=== PATIENT | male | born 1960 | race Caucasian/White ===

== ENCOUNTER 2023-09-17 06:38 | Day surgery (SDC) | payer BC, SELFPAY ==
[2023-09-12 15:28] VITALS: BMI 43.0
--- NOTE | 2023-09-16 09:27 | HO.ANESPROP2 ---
Documented by User: Connie Mills NP 09/16/23 09:27 HPI - Anesthesia Eval Consult details Narrative: 63yo M for Colonoscopy [facility] Past Medical History Medical History (Updated 09/12/23 @ 15:27 by Hayley Al RN) Solitary kidney, congenital Diabetes mellitus Elevated cholesterol Surgical History Surgical History (Updated 09/12/23 @ 15:27 by Hayley Al RN) History of amputation of thumb Hx of hand surgery Hx of vasectomy Hx of right knee surgery Hx of hernia repair Hx of colonoscopy Social History Social History (Updated 09/12/23 @ 15:34 by Hayley Al, CORWIN) Patient Tobacco Use Status: Current everyday Tobacco user Tobacco use type: Cigarette Cigarettes Per Day: 15 Smoked in Last 30 Days: Yes Advance Directives: No Advance Directives Information Provided: Yes Advance Directives on File: No Current occupation: transmission worker Meds Allergies Allergy/AdvReac Type Severity Reaction Status Date / Time apricot [Apricot] Allergy Severe SWELLING/RA Verified 09/17/23 07:15 Home Medications ?Medication ?Instructions ?Recorded ?Confirmed ?Last Taken ?Type Vitamin D3 09/12/23 09/12/23 Unknown History atorvastatin 20 mg tablet 20 mg PO DAILY 09/12/23 09/12/23 Unknown History Exam Height,Weight and Vital Signs: Height 5 ft 10 in Weight 136.078 kg Assessment and Plan Assessment Anesthesia Assessment: Chart Reviewed Documented by User: Anika Hunt MD 09/17/23 07:48 [facility] Past Medical History Medical History (Updated 09/12/23 @ 15:27 by Hayley Al RN) Solitary kidney, congenital Diabetes mellitus Elevated cholesterol Family History Family history of problems with anesthesia: No Surgical History Surgical History (Updated 09/12/23 @ 15:27 by Hayley Al RN) History of amputation of thumb Hx of hand surgery Hx of vasectomy Hx of right knee surgery Hx of hernia repair Hx of colonoscopy History of Problems with Anesthesia: No Social History Social History (Updated 09/12/23 @ 15:34 by Hayley Al RN) Patient Tobacco Use Status: Current everyday Tobacco user Tobacco use type: Cigarette Cigarettes Per Day: 15 Smoked in Last 30 Days: Yes Advance Directives: No Advance Directives Information Provided: Yes Advance Directives on File: No Current occupation: transmission worker Meds Allergies Allergy/AdvReac Type Severity Reaction Status Date / Time apricot [Apricot] Allergy Severe SWELLING/RA Verified 09/17/23 07:15 Home Medications ?Medication ?Instructions ?Recorded ?Confirmed ?Last Taken ?Type Vitamin D3 09/12/23 09/12/23 Unknown History atorvastatin 20 mg tablet 20 mg PO DAILY 09/12/23 09/12/23 Unknown History Exam Airway Mallampati Class: III TM Dist: >3cm Neck ROM: Full Assessment and Plan Assessment Anesthesia Assessment: Anesthesia Plan Discussed and Smoking Cess. Discussed Final Anesthetic Review Family History of Problems with Anesthesia: No History of Problems with Anesthesia: No NPO: Yes ASA Class: III Final Preanesthetic Review: No Changes in Pt Med Stat, Meds/Allgs Chart Reviewed, Consent Obtained/Reviewed and Anes Risks/Benef Reviewed Patient Risk: Intermediate Procedure Risk: Low Anesthetic Plan Anesthetic Plan: TIVA Disposition: Standard PACU
[2023-09-17 07:03] VITALS: BP 153/92; PULSE 97; RESP 18; TEMP 36.4; O2SAT 97
[2023-09-17 07:11] VITALS: BMI 43.4
[2023-09-17 07:17] LABS: Glucose, Whole Blood 163 mg/dL (60-115)
[2023-09-17] MEDS: Lactated Ringers 1,000 ML 100 ML IVCONT (07:24)
--- NOTE | 2023-09-17 08:00 | P.HPSUR_ITS ---
Pre-Procedural Eval Section A - 24 Hr Update-Section A only Date of Service: 09/17/23 Section B - Complete if H&P > 30 days Chief Complaint: hx colonic polyps,screening Details of Present Illness: see H&P no changes Relevant Family History (Specify if Yes): No Relevant Social History: None Present Medications: see Short Stay Collaborative assessment Medical History: No relevant PMH History of Previous Operations: No relevant previous surgery Allergies: Allergies Allergy/AdvReac Type Severity Reaction Status Date / Time apricot [Apricot] Allergy Severe SWELLING/RA Verified 09/17/23 07:15 SH Review of Systems Sugical H&P ROS: Negative: Constitution, Cardiovascular, Respiratory, Neurological, Psychiatric, Hem-Onc, Allergic/Immunologic, Gastrointestinal, Genitourinary, Musculoskeletal, Integumentary, Endocrine and Eyes/Ears /Nose/Throat Exam Surgical H&P Exam: Normal: HEENT, Normal: Heart, Normal: Lungs, Normal: Extremities, Normal: Abdomen, Normal: Skin and Normal: Neurological Plan Diagnosis/Plan: Unchanged I have reviewed the history and physical and performed a pertinent physical examination on my patient. No changes have occurred unless specified. Time Spent With Patient Time: Total time managing care of this patient today ____ minutes.
[2023-09-17 08:43] VITALS: BP 111/68; PULSE 93; RESP 16; TEMP 36.8; O2SAT 94
[2023-09-17 08:58] VITALS: BP 134/84; PULSE 78; RESP 16; TEMP 36.7; O2SAT 95
--- NOTE | 2023-09-17 09:43 | OP_ITS ---
DATE OF SERVICE: 09/17/2023 SURGEON: Ángel Parsons MD INDICATIONS: Colon cancer screening and prior history of adenomatous colon polyps. PREOPERATIVE DIAGNOSIS: POSTOPERATIVE DIAGNOSIS: PROCEDURE PERFORMED: Colonoscopy to the terminal ileum with biopsy. ESTIMATED BLOOD LOSS: COMPLICATIONS: ANESTHESIA: Monitored anesthesia care. ASSISTANTS: SPECIMENS: DESCRIPTION OF PROCEDURE: A history and physical was performed. The risks and benefits of the procedure were explained to the patient and informed consent was obtained. The patient was placed in the left lateral decubitus position. A digital rectal exam was performed and was found to be normal. The Olympus pediatric video colonoscope was introduced into the rectum and advanced to the cecum. The cecum was identified by transillumination, palpation, and identification of the ileocecal valve. Examination was performed and the scope was removed. He tolerated the procedure well and was returned to the recovery area in stable condition. FINDINGS: The terminal ileum was briefly examined and appeared normal. The visualized colonic mucosa was normal. There was some liquid stool coating the mucosa in the right colon and transverse colon. This was washed and suctioned. A single polyp measuring less than 5 mm were identified at 60 cm and removed with a biopsy forceps. No other polyps were identified. There was moderate sigmoid diverticulosis. Retroflexed examination showed internal hemorrhoids. IMPRESSION: Colon polyp. RECOMMENDATION: Follow up the biopsy results. MD FEDERICA Zapata/STEPHANIEL / [id number]
== END 2023-09-17 09:23 | disposition home or self-care (01) ==
PROVIDERS: PCP Registered Nurse; Visit Provider Internal Medicine Gastroenterology
PROC: 0DJD8ZZ Inspection of Lower Intestinal Tract, Via Natural or Artificial Opening Endoscopic (ICD-10-PCS; CPT 45378; principal; 2023-09-17 08:20)
DX: Z12.11 Encounter for screening for malignant neoplasm of colon (principal); D12.6 Benign neoplasm of colon, unspecified; Z86.010 Personal history of colon polyps; E11.9 Type 2 diabetes mellitus without complications
CPT/HCPCS: 45380; 82947; 88305; J1596; J2704